=== PATIENT | female | born 1965 | race Caucasian/White ===

== ENCOUNTER → 2018-06-26 | Outpatient (CLI) | payer BC ==
--- NOTE | 2018-06-26 08:47 | US ---
EXAMINATION TYPE: US abdomen complete DATE OF EXAM: 06/26/2018 COMPARISON: NONE CLINICAL HISTORY: R10.9 Abd pain. EXAM MEASUREMENTS: Liver Length: 15.8 cm Gallbladder Wall: 0.2 cm CBD: 0.3 cm Spleen: 9.6 cm Right Kidney: 10.3 x 3.4 x 6.1 cm Left Kidney: 9.8 x 4.9 x 4.8 cm Pancreas: head not clearly delineated. Distal talus not well visualized. Liver: wnl Gallbladder: No stones seen Evidence for sonographic [place]'s sign: no CBD: wnl Spleen: wnl Right Kidney: No hydronephrosis or masses seen Left Kidney: No hydronephrosis or masses seen Upper IVC: wnl Abd Aorta: wnl IMPRESSION: 1. Visualized portions of the abdomen ultrasound or unremarkable.
== END | disposition home or self-care (01) ==
LOC: RADUSWWP 07:36
PROVIDERS: ATTEND Family Medicine
DX: R10.9 Unspecified abdominal pain (principal)
CPT/HCPCS: 76700

== ENCOUNTER → 2018-06-30 | Outpatient (CLI) | payer BC ==
--- NOTE | 2018-06-30 15:27 | NM ---
EXAMINATION TYPE: NM hepatobiliary w EF DATE OF EXAM: 06/30/2018 COMPARISON: Ultrasound abdomen 06/26/2017 HISTORY: Nausea TECHNIQUE: After the intravenous administration of 5.03 mCi Tc 99m Mebrofenin hepatobiliary scintigra phy is performed. Immediate images post injection. FINDINGS: There is satisfactory initial accumulation of tracer by the liver. The gallbladder is visualized wit hin 16 minutes. The small bowel activity is noted within 8 minutes. At one hour 8 ounces of oral en sure plus is given to mimic CCK and gallbladder ejection fraction is calculated at 73 %, in the es l range. Therefore there is no scintigraphic evidence of cystic or common bile duct obstruction to s uggest acute cholecystitis or gallbladder dyskinesia. IMPRESSION: Exam is within normal limits.
== END | disposition home or self-care (01) ==
LOC: RADNMMAIN 12:42
PROVIDERS: ATTEND Family Medicine
DX: R11.0 Nausea (principal)
CPT/HCPCS: 78226; A9537

== ENCOUNTER → 2018-07-21 | Outpatient (CLI) | payer BC ==
--- NOTE | 2018-07-21 09:45 | CT ---
EXAMINATION TYPE: CT abdomen pelvis w con DATE OF EXAM: 07/21/2018 HISTORY: Abdominal pain, nausea, and vomiting. History of pyloric stenosis as an . CT DLP: 793.6mGycm Automated Exposure Control for Dose Reduction was Utilized. CONTRAST: CT scan of the abdomen and pelvis is performed with IV Contrast, patient injected with 100 mL of Isov ue 300. COMPARISON: Abdominal ultrasound dated 06/26/2018 FINDINGS: LUNG BASES: No significant abnormality is appreciated. LIVER/GB: There is a too small to accurately characterize hypoattenuated hepatic lesion on series 4 i mage 20 within the inferior right hepatic lobe. No cholelithiasis. PANCREAS: No significant abnormality is seen. SPLEEN: No significant abnormality is seen. ADRENALS: No significant abnormality is seen. KIDNEYS: Kidneys enhance symmetrically without hydronephrosis or nephrolithiasis. BOWEL: No significant abnormality is seen. UTERUS/ADNEXA: There is prominence of the lower uterine segment and cervix. Slight heterogeneity in t he right fundal myometrium likely represents a small leiomyoma. LYMPH NODES: No greater than 1cm abdominal or pelvic lymph nodes are appreciated. OSSEOUS STRUCTURES: No significant abnormality is seen. IMPRESSION: 1. Diffusely thickened gastric rugal folds may relate to incomplete distention or gastritis. Endoscop y could be considered if clinical symptoms are fitting. 2. Punctate appendicolith is seen without current evidence of acute appendicitis. 3. Lower uterine segment cervical prominence is noted and should be correlated with physical exam. Pr obable small right fundal intramural leiomyoma.
== END | disposition home or self-care (01) ==
LOC: RADCTMAIN 06:37
PROVIDERS: ATTEND Family Medicine
DX: K38.1 Appendicular concretions (principal)
CPT/HCPCS: 74177; Q9967

== ENCOUNTER 2018-07-24 11:31 | Day surgery (SDC) | payer BC ==
[2018-07-24 13:14] VITALS: TEMP 97.8
[2018-07-24] MEDS ORDERED: LACTATED RINGERS 1,000 ML IV ONE (13:17)
[2018-07-24] MEDS ORDERED: LIDOCAINE 1% 20 ML VIAL (10MG/ML) FOR IV START INTRADERMA ONE (13:17)
[2018-07-24] MEDS ORDERED: PROPOFOL 10 MG/ML 20 ML VIAL IV ONE (14:52)
[2018-07-24] MEDS ORDERED: LIDOCAINE 1% INJ 10MG/ML (20 ML MDV) ONE (14:52)
--- NOTE | 2018-07-24 15:50 | P.PCN ---
Date of Procedure: 07/24/18 Procedure(s) Performed: Procedures: 1. Esophagogastroduodenoscopy and biopsy. 2. Total colonoscopy. Preoperative diagnosis: Reflux and nausea and screening for colon cancer. Postoperative diagnosis: 1. Small sliding hiatal hernia with low-grade distal esophagitis. 2. Mild antral gastritis. 3. Multiple biopsies obtained from the duodenum, antrum and esophagus. 4. Colon exam to the terminal ileum within normal limits. Preparation: HalfLytely prep. Sedation: Was provided by anesthesia. Brief clinical history: The patient is a 53--year-old female who is scheduled for this evaluation for the above reasons. She has not responded to acid suppressive therapy. No alarm symptoms. This would be her first endoscopy. Procedure: With the patient on her left lateral decubitus position and after informed consent and adequate sedation, I passed the Olympus-GIF H190 video upper endoscope through the cricopharyngeus down the esophagus. GE junction was around 35 cm from the incisors and there was low-grade distal esophagitis but no strictures or Meehan's esophagus. The endoscope was then passed into the stomach which was insufflated with air and inspected in detail including the retroflex view in the cardia. There was some mottling and erythema in the antrum but no ulcers or erosions. Pyloric channel, duodenal bulb, post bulbar area and descending duodenum appeared within normal limits. Because of her symptoms, obtained biopsies from the duodenum, antrum and esophagus then the endoscope was withdrawn and I proceeded to perform the colonoscopy. Perianal area did not show any fissures or fistulas. There were no masses felt on digital rectal examination. The Olympus CF H190L video colonoscope was then inserted in the rectum in the usual fashion and advanced to the cecum. I intubated the ileocecal valve and examined the terminal ileum. Terminal ileum and colon appeared healthy with no edema, erythema, friability, ulceration, exudation or spontaneous bleeding. No polyps or tumors were seen or any obvious diverticular disease or other pathology. I retroflexed the endoscope in the rectum before the endoscope was withdrawn. The patient tolerated the procedure well. Plan: The patient was reassured. I discussed with her as well. Will continue symptomatic treatment while we await biopsy results and further plans will be made accordingly. She will follow-up with you as planned and we will be happy to see in the office of her symptoms persist. For colon cancer screening, I am recommending repeat exam in 10 years.
[2018-07-24 15:51] VITALS: BP 127/68; PULSE 68; RESP 16
== END 2018-07-24 16:02 | disposition home or self-care (01) ==
LOC: ORWHC2ENDO 11:31
DX: K29.50 Unspecified chronic gastritis without bleeding (principal); K21.0 Gastro-esophageal reflux disease with esophagitis; K44.9 Diaphragmatic hernia without obstruction or gangrene; F17.200 Nicotine dependence, unspecified, uncomplicated; Z79.899 Other long term (current) drug therapy
CPT/HCPCS: 88305; 43239; J2001; J2704; G0121